=== PATIENT | female | born 1965 | race Caucasian/White ===

== ENCOUNTER 2020-10-19 10:54 | Emergency (ER) | payer BC ==
--- OUTSIDE RECORDS SUMMARY | 2020-10-19 10:56 | XMS REPORT | Continuity of Care Document ---
:[address] [facility] t Address [address] [place] [address] Care Team Providers Name Role Phone Pcp Primary Care Physician Unavailable VALERIA SHAW Attending Clinician Unavailable Valeria Shaw MD Attending Clinician Gerard Nieto MD Attending Clinician VALERIA SHAW Admitting Clinician Unavailable Payers Payer Name Policy Type Policy Effective Date Expiration Date Sour ce Number BLUE CROSS/BLUE [id number] 2020 [facility] Medical POS [facility] [id number] [phone] [id number], [place] [address]LDW Problems This patient has no known problems. Allergies, Adverse Reactions, Alerts This patient has no known allergies or adverse reactions. Social History Social Habit Start Date Stop Date Quantity Comments Source Sex Assigned At [facility] Exposure to Not sure [address] (event) Alcohol intake 2020-10-18 2020-10-[address] [facility] es - 00:00:00 00:00:00 (finding) [facility] Tobacco use and 2020-10-18 2020-10-18 Never used [facility] - exposure 00:00:00 00:00:00 Medical Center Smoking Status Start Date Stop Date Source Never smoker [facility] Medications This patient has no known medications. Vital Signs Vital Name Observation Time Observation Value Comments Source Systolic blood 2020-10-17 13:30:00 164 mm[Hg] [facility] Diastolic blood 2020-10-17 13:30:00 64 mm[Hg] [facility] S [facility] Heart rate 2020-10-17 13:30:00 60 /min [facility] Respiratory rate 2020-10-17 13:30:00 18 /min [facility] Oxygen saturation in 2020-10-17 13:30:00 97 /min [facility] - Arterial blood by Medical Ce nter Pulse oximetry Body temperature 2020-10-17 13:15:00 36.11 Peri [facility] Body height 2020-10-17 10:25:00 170.2 cm [facility] Body weight 2020-10-17 10:25:00 104.101 kg [facility] BMI 2020-10-17 10:25:00 35.94 kg/m2 [facility] Procedures Procedure Date / Time Performed Performing Clinician [facility] REPORT OF PROCEDURE - 2020-10-17 12:14:[address] [facility] - ENDOSCOPY URL [facility] FINE NEEDLE ASPIRATE 2020-10-17 12:05:[address] [facility] - (FNA) REQUEST [facility] FINE NEEDLE ASPIRATION 2020-10-17 12:05:00 Janis Shaw n [facility] - BY CLINICIAN [facility] UPPER ENDOSCOPY,FNA 2020-10-17 11:25:00 Janis Shaw [facility] W[facility]ULTRASOUND [facility] Plan of Care Planned Activity Planned Date Details Comments Source Future Scheduled 2020-08-[address] [facility] - Test 00:00:00 (12+) [code = [facility] DEPRESSION SCREENING (12+)] Future Scheduled 2020-04-[address] [facility] - Test 00:00:00 (#1) [code = [facility] INFLUENZA VACCINE (#1)] Future Scheduled 2013-11-02 SHINGLES VACCINES ([address] [facility] - Test 00:00:00 of 2) [code = Medical Center SHINGLES VACCINES (1 of 2)] Future Scheduled 2008-11-[address] [facility] 00:00:00 (procedure) [code = [facility] Center [id number]] Future Scheduled 1984-11-[address] [facility] 00:[facility]00 malignant neoplasm of [facility] cervix (procedure) [code = 953105958] Future Scheduled 1982-11-02 DTAP/TDAP/TD VACCINES [facility] Test 00:00:00 (1 - Tdap) [code = Medical C enter DTAP/TDAP/TD VACCINES (1 - Tdap)] Future Scheduled 1981-11-02 HEPATITIS C SCREENING [facility] Test 00:00:00 [code = HEPATITIS C Medical Center SCREENING] Future Scheduled [address] [facility] - Test 00:00:00 malignant neoplasm of [facility] breast (procedure) [code = 800072291] Future Scheduled [address] [facility] - Test 00:00:00 malignant neoplasm of [facility] colon (procedure) [code = 441438028] Results Test Description Test Time Test Comments Results Result Comments Source Fine Needle Aspirate by Clinician 2020-10-18 11:00:00 Test Item Value Reference Range Interpretation Comme nts Case Report (test code = 104) Medical Cytology Report Case: [id number] Authorizing Provider: Janis Shaw Collected: 10/17/2020 12:05 PM MD Jessie Ordering Location: [facility] Endoscopy Received: 10/17/2020 02:22 PM Services Pathologist: Mika Jaquez MD Specimen: Pancreas DIAGNOSIS (test code = 3220) [id number]cLxSpFs p cdWMxIHtccnRmMVxlcGljOTIwMlxhbnNpXHNwbH KbK8ApfahuBAujCC3vOI0fqTxmzDKomTMbDSLaH zNjs0pwh855tHVzf3kjEZKNnnwpdPu4pXzyB72r l6V6StbfX47lcXOnECxxeSJoimlypoZeOCWZMkB ZDMQAJEAOZUuAUWWMVTARYTVUGVLDNPZrH5dBQ8 CVZB5KADDEQSWHIZxEGECGE0GVWBganYYaNDHzF A3tXoZTFLUKWxGoQc3PEL2QQBaCGaUTL9axwXZm NDKxTVJkSKYEHq0WHDRLTJHfK50VI1kMXJVGDCC LZHKRPSCSU2DcP81OZCHLNGFqzUTzZAIrVWVgMI ASZH3gY4UVGD7wWEHgOoTSJXQXYmMbzDCwrAtaz oYjNWzpm1DnLLdzWFHpRU4okSopYDGxPA5uPELw M9earQ1qhts3HhNqTKBzDiD8UGLiajM8Opz6LVR mYYgao7gbd3FuQJUqWGf3qEdyJbLlZJQsl7ukun YxToItMRYuTYShIIOefLYqP296e4amw9xxitFzf UB6NGRfKSV9GPkcutLgpfV6XXvmdAJlRtO8CKht mvInODaebwXbjvVzPte5KGBnG688VPQ1wJtdj8t tZGR1QUIhFZSoUyBeMh0pwFCsJ491CCXnCDRDOW UfoCn4ROFsfaSiynXmtPDGg244C743m4rvWADhm dDmmKdNeonjk7mvW606CVZbqWSsmzRuXwNiMXDl lLZjoQJ1BPGuKJ3gdccdRFfzPVjwGIRnpiS1FHF xaDOeP1VtVIVlOW9koprbMGO2RYexBBIlGPI8Xn QvQLAvy8Fecmz6WgRoiz2bml32TJY9v0RquGakS JN2IZQ8PrDrKg2zkVJwBAOyJQ1xAkLftKRxVDLi kj80aAfoAWdnLKI7EOAomqBqs8Fvr6grGkClmsA tY3rrL1ViBYOdDQUdYSLuMqTkqtQpk4Qzv5ApgV NzbYx1m5fcSFMsXVEmzEzqa9zkVFE5KMRwwXZnH 0cudS6bRJVsXY6wpmdoc3xnNVrzBArbZTYvrGX8 uzQ6KPWqnBBxM2RndI7wASWaONbhAIScnmk6ClN dZt3wnSBuhPbzLDngQpueNBjfNRYuqnPoxxCgtY duZGVjXHBsYWluXHBsYWluXGYwXGZzMjRccWxcb SEgQePsIuHqbQkfuKqpBVweGsGyJHOnBJbkM5sn AsPpCqHdYhs0KBRqtVEiAVCzZrt6HGVnuJUiELU XiRfkhL6xYZUsfAiwzH1lfQK6CFOniuWjjYYAhY 9lKPXCzJ3nLyN0BtDnMzY6KRL3CDNMFJNsyg33 CPT Code(s) (test code = 3357) t2ppfKBcPBTomMF1PcTbUVPyw5ssc7ZzcIVj cGF hRVyvaZYpyzXqii20uUL2fJ09LH7uXRUjDgW4MY SzrtU7Szc7NUFcROIaeSSfS080f1hwa0pcgwYga HF1nDlqERJdITIlJAfrMAJwWpNeNPjxXTpwGCx1 SyW2MYK1GRSyJ2fwTMI5 CLINICAL DATA (test code = 3355) b6nqvLVyHQNzbSZ3KtKhESQba1fpe5XpnM BncGF qBYjvkAAcruBagg79sMC6lI81NA6eRBIxOlI2SH PsdiR6Eys3INQcQLPdtDMpN130q4xkl3ybgwZat ZS8fGvrGGJxBXAsVPdaNMYmMqZhUO5lGMIiJLzp BD7oMPZhKLCiUNZuv3xbWAxkd6wnejLykHuwZRG 0sLXuME3jYEOuF7jbcAGkCZIncCicgEXbYIlmEA ApGOVuBY4wibHcrMbvZZMieYynQEFrz8RemPAtD xBpvWPoHQspYBBaQ23naTDjeLAhOSbzmoPeZVVu XGInaVFeIaysNEXqge27pnOfqsVsp0H4XPG3HZQ mxCocRoQuLI0sgFNho9BptNAsx3GkK9h3y7ycA1 lccGFyfQ== SPECIMEN SOURCE (test code = 3377) o6fjhVIsYAJwoEF9QfVlKFGfp2els6Ge dHBncGF tJRlquTHkupQbjw92gWU2tG67PD1gZEIgOoU6LK MvdnZ2Kbk4NMTzGRFxfSMdW819h0sfl0ptkgDsk UJ4kXbpJGQiDQDpBUktPBEcVqAoVDBBX9JHELSp RDBUDUkcSSBJI4JaSPBSEIkQNVBeli0= GROSS DESCRIPTION (test code = 3366) b1lzlOFhIEWkcND0RiGiKNKpr4pzf2 BsdHBncGF jYVnisBPtzhDbmz21tRF6hB65QE3vYVMwPgE9CT ZgcoC9Pzq9DTBkITJwsUWfI888f9hua1rowpWtm CB2jTvrSKDyRVKlZQstXMYxIcJwKpUtSBl1YVJi OMiahEuqA7s8v2KkJ5vxmwSuDFSirDR6oPPcJRI ujBIxFOcfuPHmhVRlFOCqP2ZlaYJybW4doozWUr thkNNbyyvvS32pfI0rnC9fNJOnXtQoutBuEPCee JVzh3KizkXwVOZyfi9= MICROSCOPIC DESCRIPTION (test code = t7usgMUeKKPhkBC5LsHvHIVde0wob9 BsdHBncGF 3371) rUBrnpTBxhzHpyq23fDB0pZ67UL6jBCMdBsW9PD YnhsO2Hmm4KARwYZBnhORmF444w0vvk9lmwpEpt QU6gLaqKLElZRReKQesSFFkJmOiTHVpLv4cnYGo LiBccGFyfQ== SPECIAL STUDIES (test code = 3376) u6sjhQLrSYCxy1peVROwkXYoFqIcPtXe ZnRuYmp kwOXxFGcxtaDxPAutd8GxY8UnItBgJLvogdEnVB PeGstsaxjxUEScWMY1frWmCWEuRIuiGALoFObtT k3xwDNxsYnhJvQfEUBru9mfgbRSoxqxpUa1c7ke YXPdZbP3qBGkZZhdC5nrwkSbpDOnA6ZumGQkqQm 4y3geMrGzHxS9vMPgXOwiX3fbzrCoqQHlTCUmAT y2fC54QEZqbC8dlGEpKNxceqFtTyE0GYmaRARkT eQ7ORVjnVKmOBCjD3bkYCBkXTrzJGJyJJhsxDJd UVD4pShzy0Y6sGTnyLYhtVlqUrPcUdIdZeYGx9O tXQa9tAoyC2EwDASiPzQ4eIMwTANhOTejDMYkVX JarsJ7vDyasvWqq62lqUJkGNHoTWGoXiTbfMhmR NPtKEXFx4FpaPqgVIY8qVk4dUmhFydkAUZ0Ilr0 WR5jwn13ucr6qHcvWFRittbkZbV9YMmnBCMdxdv eMRe9ETcjAAShlQZ2HOWuiZViR9EjCRNcEV0eqm m9RRN2DRouEUFhJhT7QUNkvTZqJAMvnIgwWOtif 638WKA9YnEdZT3yR6Tax9J7rC9jqCMfQOHavOHy YwCuXVJwha3vpAUvTEtuu7BjPZZ9vsL0tEHapTP wYECpFH47Xmmxr9LtPnbug1YvL19orDU5QDelt5 cwHH6oByI4wlUfXPduw0hdgQ2jTfB1SCudXF5lL G1fAGGywI9ddbsmGMKoToBedzgwXTQbcLogvkTa Kl9dsAcqPRN2MEbcF8xmzM2iWkV0UAjtH4yewF9 fYSi5YOydpWB3VKFsbY6bHO7znmwws5whSTwbWI qnHXIhrlX0snW9OTMuhVDbY3AsiK6aTDUeKF4ws elbs0ikMOU1RMtqEEZeKMO4VcZxUXRis9Kaara9 TwPiv3WbkQFxILbsQ61di097MPGzgqCvS8flnRK gbiakcGLnogacCRsqsdW5ZHScOREaKHggFCLxDN ZzMjJcbGFuZzEwMzNcaGljaFxmMVxkYmNoXGYxX GaoB1tfGmTtC4VdHMQcUkFxIXbfDXzifXMvbCLk zJG4zL7rAJ7hOVRxbOVvP6GsRMZnzpVzxEChSNP 1yJEquAGnIZ8sNSdnjMFne3hns7DiE7tpfCoboI J6RZ9rTJNnQWVtXKiyu2VmzH0sTtkzcKVgleslO RpbryYnKPntcvuyFZBmDCkoY6fhLfZvCXAgnHjp KTdyy1PaNIKtJLUfRkqcbyApZRx9ujQxENUjmmu lCRGtqIolwV1wIaCpPvMrSdxlTA8aVPUvK9xpyM PiGYStXOZjJ8apSgYroT4ynBdjVJccBrUmWhDhJ lNVm663oh2rAHKeqMOqobNUiPKmcP4wFRrtLVcp NJlpjVChKWety1qoKQZlf9r9xHMdNBGlbfCfi0g hJScpvfXqILVryOGjaTHaDWQmn77uFSucvDdsdD apYUDub4DnrLctx1CrOyGcDJrvp1KhJ22rbFMxz VLyqYayUOGpdaKzPWQgu49ii5nmMBTaEaL9jWPy iWK1lONreFWhb9AzdZcaYQGya4ybTIGqjf7zbwe rqYCak0RhtZ8osadrGHmrdYNablFtBENtj3h5bZ VzWBGrRFZrIDqcdKg8JLRay026wl4ybiD3uNWeZ PJ3NSnzFLCgWFKcpgLsJXRzuCVetXIiAIOlPJcz XGYxXGZzMjJcbGFuZzEwMzNcaGljaFxmMVxkYmN tLCKiNAwdK0urDjIpA4QgZKNsApTbdRBkW1gixT FyXHBsYWluXGYxXGZzMjJcbGFuZzEwMzNcaGlja BtjBSkyMjRgRCNnIYzlI4aeVqRqP5ZnRXEfAbBg OKwimTOxhptuRAqqyeRhJFrtzeynJMMsHLxbY3o rUyGaXQJvjGtlOXwuc8AlWFUvWOFjErnnlySwTE u5odZtRYZqzstgdLEjdowsEYvjnyOeTUsoxlueJ PAbUGxwA7xkRsNoEYDxmKfmRInsy9SnWHWtZSJi GpcvbnDvEXkuqHGiy6obn3BdN6oaeGietDZ7AXB xV4efrAGlqNF9AZN2uA9oXTizmdQkQPDxg9MwCD YmDOVsJnD7qX4uHJK9UfTPeOinKATuJTvtDHJnK GZzMjJcbGFuZzEwMzNcaGljaFxmMVxkYmNoXGYx RLhgI6fnUkZzR8AvLLCxLrCfqLkxVUplFQz4Clf mfIVyuccyXYkjgrYlVRjqlsycUFHlYNhjG1aiAt ZrLLSjvWnjCIgpt1ZcVYLvAXIxKtxsejUmKQSiF OSasKCvdQGKWV76DCCwSKUulKhvhS2xxJGKPVMh uhO8c2R6ZQplYGQbVYy5LYrjvsSeYLNgwG0vQGH oIX2aPDn7evWnXRLmm9EzFB8dHSDdkKMsRJF2VW Mbd0MqQ9Jmb4AsZJYvFRZwue8bibRzBqGHgNDuC GRjxb29AFYdHC2oR0kcYIYiHOUcmwAtgUZdl0Ci XULqbCM4eOGhYZ2XQiQRy14zZANpNNAVpaXdDAV mdNimqDW4mbX6tS1dOyHBdHTtCnALHTwzqwUwBR Ktwh0sqcLxAGVfNSCjy9KxkIKzjGKtlfRxD8Ume 2TtNYAukk59RQydiZOjfx05DM5dX3Ihs1VsaQ7i RQweGBYwm3FlkLTnaNJgEQLen0AvQ2fpbzeuNSw lsKHkkW2sSJSkWWh3EGZlz9AgTGWod0LsNoUacr UoENJaMNZhDIKphC99SZM0fApqrKmfnaXoBZ1tJ LXylgEtQRTtVKMcvA9bPBznkvVxDFUfguE9x1S6 HJptBMZoxlZlHrmvIXF9cfFwdcN2sNUfR2qdwor dWNvtOAZrx6SuiR1ssFOCaDVdz0IjfNPxpKYZlG JsOT8bliItML0mHOY9PEhcRERNOWNyYCvdEGUzD XN7FFaqSfcfKEQ6llHgALKvg9UrGZdkL1ahU42z aDantBw5wCQwqUnplRXwsIMrGBOekjF9m8X5QTZ sx5WkglvxVWWfYOjkJNQlPQXaZmZkyRVoAcGiLn YqrVftfSqnSddsGtZwIJSiWZxkM2ciHmPuRlNgE epaATT5kJ== Gross assessment was performed at (test [facility] enter, code = 2777) Department of Pathology, [address] [place] [address], Technical component was performed at [facility] er, (test code = 2778) Department of Pathology, [address] [place] [address], Professional component was performed at [facility] enter, (test code = 2779) Department of Pathology, [address] [place] [address], [facility] BY [id number] 11:00:00Medical Cytology Report Case: [id number] Authorizing Provider: Janis Shaw Collected: 10/17/2020 12:05 PM MD Jessie OrderingLocation: [facility] Endoscopy Received: 10/17/2020 02:22 PM Services Pathologist: Mika Jaquez MD Specimen: Pancreas PANCREAS, TAIL, CYST, FLUID (CYTOSPINS AND CELL BLOCK): - NEGATIVE FOR MALIGNANCY MACROPHAGES CONSISTENT WITH CYST CONTENTS MUCIN STAIN IS NEGATIVE Signing Pathologist Direct Phone Line: [phone] signed by Mika Jaquez MD on 10/18/2020 at 11:00 [id number], [id number], 024603.0 cm x 5.0 cm a nechoic lesion suggestive of a cyst identified in the pancreatic tail, amount of fluidcollected was 10 mL turbid, brown and watery fluid; sample sent for cytologyPANCREAS, TAIL, CYST, FLUIDReceived 17ml cytorich red fixative sample; prepared cell block(A2) using collodion bag and 4 cytospins Performed. The interpretation of this case included the use of immunohistochemistry or special stains.Control Slides Examined: In-house known positive controls were evaluated along with the test tissue. These control slides run alongside of the patients sample show appropriate staining. Internal positive and negative controls when available are evaluated Immunohistochemistry technical testing was performedat [facility], Pathology Laboratory where it was developed and its performancecharacteristics were determined. It has not been cleared or approved by the U.S. Food and Drug Administration. The FDA has determined that such clearance or approval is not necessary. The test is used for clinical purposes. It should not be regarded as investigational or for research. This laboratory is certified under the Clinical Laboratory Improvement Amendments of 1988 (CLIA-88) as qualified to perform high complexity clinical laboratory testing.[facility], Department of Pathology, [address] [place] [address], [facility] Dep [facility], [address] [place] [address], [facility], Department of [facility]ology, [address] [place] [address], JZAA NEEDLE ASPIRATE (FNA) [id number] 16:01:00 Test Item Value Reference Range Interpretation Comments Cytology (test code = See Separate Report 2629) [facility] [id number] 16:01:00 Test Item Value Reference Range Interpretation Comments CYTOLOGY RESULT POINTER See Separate Report (BEAKER) (test code = 2629)
[2020-10-19] MEDS ORDERED: ACETAMINOPHEN 500 MG TAB ONE (12:37)
--- NOTE | 2020-10-19 15:03 | ER ---
Nurse's Notes [facility] Name: Susan Maravilla Age: 54 yrs Sex: Female : 1965 Arrival Date: 10/19/2020 Time: 11:00 Bed External Waiting Private MD: Diagnosis: Presentation: 10/19 12:14 Chief complaint: Patient states: Had a stent placed in my pancreas Friday10/17/2020, ca1 started having fever yesterday the . Htemp 102.7. Tylenol last taken 0500. Reports nausea and lightheadedness. Coronavirus screen: Client denies travel out of the [place] in the last 14 days. fever, Client presents with at least one sign or symptom that may indicate coronavirus-19. Standard/surgical mask placed on the client. Provider contacted for isolation considerations. The client reports previous COVID testing was negative. Date of collection: October 10, 2020. Ebola Screen: Patient negative for fever greater than or equal to 101.5 degrees Fahrenheit, and additional compatible Ebola Virus Disease symptoms Patient denies exposure to infectious person. Patient denies travel to an Ebola-affected area in the 21 days before illness onset. No symptoms or risks identified at this time. Initial Sepsis Screen: Does the patient meet any 2 criteria? No. Patient's initial sepsis screen is negative. Does the patient have a suspected source of infection? No. Patient's initial sepsis screen is negative. Risk Assessment: Do you want to hurt yourself or someone else? Patient reports no desire to harm self or others. Onset of symptoms was October 18, 2020. 12:14 Method Of Arrival: Ambulatory ca1 12:14 Acuity: KEISHA 3 ca1 15:02 Note Spoke to the pt on the phone, states, "I'm driving to [place] to where I had my ca1 surgery done". Historical: - Allergies: 12:17 No Known Allergies; ca1 - Home Meds: 12:17 None [Active]; ca1 - PMHx: 12:17 Pancreatic Cyst; Pancreatitis; ca1 - PSHx: 12:17 Stent Pancreas; ca1 - Immunization history:: Flu vaccine is not up to date. - Social history:: Smoking status: Patient denies any tobacco usage or history of. Vital Signs: 12:14 BP 153 / 78; Pulse 90; Resp 16 S; Temp 102(TE); Pulse Ox 99% on R/A; Weight 104.33 kg ca1 (R); Height 5 ft. 7 in. (170.18 cm) (R); Pain 0/10; 12:14 Body Mass Index 36.02 (104.33 kg, 170.18 cm) ca1 ED Course: 11:00 Patient arrived in ED. am2 12:16 Triage completed. ca1 12:17 Arm band placed on right wrist. ca1 15:00 Sp Buchanan PA is PHCP. minna 15:00 Sp Ortiz MD is Attending Physician. cp 15:02 Patient's name was called from ER lobby. No response. Unable to locate patient. Will ca1 disposition as left without being seen by a provider. Administered Medications: 12:21 Drug: Tylenol 1000 mg Route: PO; ca1 Outcome: 15:03 Patient left the ED. ca1 15:08 Patient left the ED. sg Signatures: Colin Kitchen RN RN Sp Sanderson PA PA cp Moreno, Amanda am2 April Ferrell RN RN ca1
[2020-10-19 15:07] VITALS: BP 153/78; TEMP 102; O2SAT 99
== END 2020-10-19 15:08 | disposition left against medical advice (07) ==
LOC: ER 10:54
DX: Z53.21 Procedure and treatment not carried out due to patient leaving prior to being seen by health care provider (principal)
CPT/HCPCS: 99282